=== PATIENT | female | born 1965 | race African-American/Black ===

== ENCOUNTER 2024-11-03 08:50 | Outpatient (CLI) | payer MEDICARE, OTHER | END 2024-11-03 08:51 | disposition home or self-care (01) | LOC: CSHULT 08:50 | PROVIDERS: ATTEND Nurse Practitioner Family | DX: R10.32 Left lower quadrant pain (principal) | CPT/HCPCS: 76705 ==

== ENCOUNTER 2025-08-08 12:54 | Outpatient (CLI) | payer MEDICARE, OTHER | END 2025-08-08 12:55 | disposition home or self-care (01) | LOC: CSHCT 12:54 | PROVIDERS: ATTEND Internal Medicine | DX: Z12.2 Encounter for screening for malignant neoplasm of respiratory organs (principal); F17.210 Nicotine dependence, cigarettes, uncomplicated | CPT/HCPCS: 71271 ==